=== PATIENT | male | born 1990 | race Caucasian/White ===

== ENCOUNTER 2016-11-08 16:21 | Emergency (ER) ==
[2016-11-08 16:58] VITALS: BP 111/68
[2016-11-08 18:24] LABS: AGAP 15; ALBUMIN 4.4 g/dL (3.5-5.0); ALKALINE PHOSPHATASE 72 U/L (32-122); AMYLASE 28 U/L (20-200); BUN 11 mg/dL (8-22); CALCIUM 9.2 mg/dL (8.8-10.2); CHLORIDE 100 mmol/L (98-107); COSMO 276; GOT 19 U/L (10-34); GPT 22 U/L (10-44); LIPASE 15 U/L (13-60); POTASSIUM 4.2 mmol/L (3.5-5.1); SODIUM 139 mmol/L (136-145); TCO2 24 mmol/L (25-35); TOTAL BILIRUBIN 0.38 mg/dL (0.20-1.00); TOTAL PROTEIN 7.3 g/dL (6.3-8.3)
[2016-11-08 18:30] LABS: MANUAL DIFF NEEDED? NO
[2016-11-08 18:33] LABS: BASO% 0.1 % (0.0-0.8); EOS# 0.01 X1000 (0.0-0.7); EOS% 0.1 % (0.0-10.0); HEMATOCRIT 50.4 % (42.0-52.0); HEMOGLOBIN 17.2 g/dL (14.0-18.0); IMM GRAN# 0.03 X1000 (0.0-0.04); IMM GRAN% 0.3 % (0.0-0.5); LYMPH# 0.95 X1000 (1.2-3.4); LYMPH% 10.4 % (20.5-51.1); MCH 30.8 PG (27-31); MCHC 34.1 g/dL (33-37); MCV 90.3 FL (81-99); MONO# 1.09 X1000 (0.11-0.59); MONO% 11.9 % (1.7-9.3); MPV 9.5 FL (7.4-10.4); NEUT% 77.2 % (42.2-75.2); PLT 192 X1000 (130-400); RBC 5.58 XMIL (4.7-6.1)
== END 2016-11-08 20:28 | disposition left against medical advice (07) ==
LOC: ED 16:21
DX: R11.10 Vomiting, unspecified (principal); R10.9 Unspecified abdominal pain
CPT/HCPCS: 80053; 82150; 83690; 85025